=== PATIENT | male | born 1990 | race Two or more races ===

== ENCOUNTER → 2019-01-20 | Emergency (ER) | payer SELFPAY | END | disposition left against medical advice (07) | LOC: ER 02:41 | DX: M79.673 Pain in unspecified foot (principal); Z53.21 Procedure and treatment not carried out due to patient leaving prior to being seen by health care provider ==

== ENCOUNTER 2019-02-01 14:19 | Emergency (ER) | payer SELFPAY ==
[~2019-02-01] VITALS: Ht 185.4 cm; Wt 95.3 kg
[2019-02-01 14:23] VITALS: BP 136/79
== END 2019-02-01 17:05 | disposition left against medical advice (07) ==
LOC: ER 14:19
DX: S91.331A Puncture wound without foreign body, right foot, initial encounter (principal); F15.10 Other stimulant abuse, uncomplicated; F12.10 Cannabis abuse, uncomplicated; F17.210 Nicotine dependence, cigarettes, uncomplicated; W22.8XXA Striking against or struck by other objects, initial encounter; Y93.89 Activity, other specified; Y99.8 Other external cause status; Y92.89 Other specified places as the place of occurrence of the external cause
CPT/HCPCS: 93005

== ENCOUNTER → 2019-06-07 | Emergency (ER) | payer MEDICAID | END | disposition left against medical advice (07) | LOC: ER 02:05 | DX: R55 Syncope and collapse (principal); Z53.21 Procedure and treatment not carried out due to patient leaving prior to being seen by health care provider ==